=== PATIENT | female | born 1950 | race Caucasian/White ===

== ENCOUNTER 2016-06-28 23:50 | Emergency (ER) | payer OTHER ==
[2016-06-28 20:44] LABS: BASOPHILS 0.1 %; BASOPHILS ABSOLUTE 0.01 10/3/uL (0.0-0.16); EOSINOPHILS 1.2 %; EOSINOPHILS ABSOLUTE 0.09 10/3/uL (0.0-0.53); ER CBC TAT 0 Hrs 08 Mins; HEMOGLOBIN 14.1 g/dL (12.0-16.0); IMMATURE GRANULOCYTES 0.3 %; IMMATURE GRANULOCYTES ABSOLUTE 0.02 10/3/uL (0.0-0.11); LYMPHOCYTES 26.8 %; LYMPHOCYTES ABSOLUTE 2.09 10/3/uL (0.67-4.30); MEAN CORPUS HGB CONC 34.4 g/dL (32.0-36.0); MEAN CORPUSCULAR HEMOGLOB 30.3 pg (26.0-34.0); MEAN PLATELET VOLUME 10.5 fL (9.2-13.0); MONOCYTES 5.6 %; MONOCYTES ABSOLUTE 0.44 10/3/uL (0.21-1.20); NEUTROPHILS ABSOLUTE 5.16 10/3/uL (2.02-8.40); PLATELET COUNT 144 10/3/uL (150-400); RBC DISTRIBUTION WIDTH 13.2 % (12.0-16.0); RED CELL COUNT 4.66 10/6/uL (4.0-5.6); WHITE BLOOD CELLS 7.8 10/3/uL (4.5-10.5)
[2016-06-28 20:46] LABS: MANUAL DIFF NO %
[2016-06-28 20:54] LABS: INTERNATIONAL NORMAL RATI 1.1 UNITS (-); PARTIAL THROMBO TIME 25.2 SEC (22.5-37.2)
[2016-06-28 21:01] LABS: BUN (BLOOD UREA NITROGEN) 13 MG/DL (6-23); CALCIUM, SERUM 8.8 MG/DL (8.5-10.4); CHEST PAIN PROFILE TAT 0 Hrs 25 Mins; CHLORIDE, SERUM 97 MMOL/L (96-112); CO2 (CARBON DIOXIDE) 29 MMOL/L (24-34); CREATININE 0.83 MG/DL (0.55-1.02); GFR AFRICAN AMERICAN 85 ML/MIN (>=60); GFR NON AFRICAN AMERICAN 73 ML/MIN (>=60); GLUCOSE, SERUM 288 MG/DL (60-99); POTASSIUM, SERUM 4.1 MMOL/L (3.5-5.3); SODIUM, SERUM 135 MMOL/L (135-148); TROPONIN I <0.02 NG/ML (<0.05)
[~2016-06-28 23:50] MED LIST: AMIT10 PO; ASAB PO; ATEN50 PO; BEN25 PO; BETAMETH DIP0.05 % EX; BYETTA10 SC; CALTRA600D PO; CHROMAX PLUS PO; CO Q-10100 MG PO; COD15 PO; FLEX PO; HALF81 PO; INSNOVN SC; INSNOVR SC; KDUR10 PO; KLOR-CON 1010 MEQ PO; L20 PO; L40 PO; LEVEMIR SC; LEVIMIR INSULIN; LEVOTHYROXIN125 MCG PO; LEVOTHYROXIN137 MCG PO; LIPITOR80 MG PO; LISINOPRIL40 MG PO; LORTAB 5 PO; MAGOX4 PO; MICRO-K10 MEQ PO; MIRAPEX1 MG PO; MIRAPEX1.5 MG PO; MIRAPEX5 PO; MOBIC15 MG PO; MUCINEX600 MG PO; MULTIBETIC PO; MULTIPLE VIT PO; NEUR600 PO; NORCO1 TA1 PO; NORCO1 TAB PO; NOVOLOG SC; NOVOPEN SC; PERCOCET1 TA4 PO; PRAVACHOL40 MG PO; PRAVACHOL80 MG PO; PRILO PO; PRILOSEC40 MG PO; SUCR PO; THERGRANM PO; VICODINTAB PO; VICTOZA18 MG/3 ML SC; VITC500 PO; ZESTRIL40 MG PO; ZITH250 PO; ZOCOR40 PO; ZOL50 PO; [UNRECOGNIZED DRUG - OTHER] PO; [UNRECOGNIZED DRUG - OTHER] PO; [UNRECOGNIZED DRUG - OTHER] PO
== END 2016-06-29 02:35 | disposition home or self-care (01) ==
LOC: ER 23:50
PROVIDERS: Emergency Medicine
DX: R07.89 Other chest pain (principal); E11.9 Type 2 diabetes mellitus without complications; Z88.0 Allergy status to penicillin; Z88.1 Allergy status to other antibiotic agents; Z79.899 Other long term (current) drug therapy; Z79.4 Long term (current) use of insulin; Z79.82 Long term (current) use of aspirin
CPT/HCPCS: 71020; 80048; 83735; 84484; 85025; 85379; 85610; 85730; 93005; 96372; 99285